=== PATIENT | male | born 1965 | race Caucasian/White ===

== ENCOUNTER 2023-12-18 16:05 | Emergency (ER) | payer BC, SELFPAY ==
[2023-12-18 16:08] VITALS: BP 161/94
[2023-12-18 18:11] LABS: Urine Albumin Negative (Neg - Trace); Urine Bilirubin Negative (Negative); Urine Character Clear (Clear); Urine Color Yellow; Urine Glucose Negative (Negative); Urine Ketone Negative (Negative); Urine Leukocyte Negative (Negative); Urine Nitrite Negative (Negative); Urine Occult Blood Negative (Negative); Urine Specific Gravity 1.015 (<1.030); Urine Urobilinogen Negative (Neg - 1+)
--- NOTE | 2023-12-18 18:14 | ED.GENMED ---
History of Present Illness
General
Chief Complaint: Male Genito-Urinary Symptoms
Source: patient
Exam Limitations: none
Time Seen by Provider: 12/18/23 17:04
Nursing documentation reviewed up to this point in time: agreed with
Travel History
Have you had any contact with someone who has COVID-19?: No
Do you have any symptoms of coronavirus? Fever > 100 degrees, chills, cough, shortness of breath, sore throat, loss of taste or smell, muscle aches, or headache?: No
History of Present Illness
History of Present Illness:
58-year-old male with a past medical history of irritable bowel syndrome who presents to the emergency room for evaluation of testicular pain. Patient reports symptoms have been ongoing for the past 3 weeks but worse today. He reports pain in the
left testicle�describes a constant sensitivity/aching pain that will occasionally become very sharp and intense. There is no clear trigger for the more intense pains. He denies any associated swelling or redness. He denies any associated urinary
symptoms such as dysuria, hematuria, change in urinary frequency. He denies any significant abdominal or back pain, flank pain. He has not had any fevers or chills. He has not had any trauma to the area. He denies having had similar symptoms in
the past.
Past History
Past History
ED Past Medical History: None
ED Past Surgical History: Orthopedic (right knee had multiple surgeries )
Social History
Tobacco: Non-smoker
Alcohol: Occasional
Personal:
Living: with family
Employment: Employed
Family History
Family History: Hypertension and CAD
Review of Systems
Review of Systems
All Other Systems: ROS reviewed and negative except as documented in HPI and ROS
Constitutional: Denies fever or chills
Respiratory: Denies trouble breathing
Cardiac: Denies chest pain
ABD/GI: Denies abdominal pain, nausea or vomiting
: Reports other (Testicular pain); Denies dysuria, frequency or flank pain
Neurological: Denies headache
Phy Exam
Physical Exam
Physical Exam:
General: Awake, alert, oriented x3; no acute distress
Head: Normocephalic, atraumatic
Eyes: Conjunctiva normal
Throat: Airway intact, handling secretions
Neck: Trachea midline
Lungs: Breathing comfortably and not in distress
Heart: Regular rate
Abd: Soft, non distended, nontender with no abdominal mass
: Normal testicular lie, no scrotal swelling, mild left testicular tenderness but no masses appreciated, no hernia
Neuro: No gross deficits
Skin: no rash
Extremities: Warm and well-perfused
Scores
Heart Failure Risk
Heart Failure Risk Score: Not Applicable
Heart Score for Chest Pain Patients
STEMI patient?: Not applicable
Withdrawal Assessment of Alcohol
Withdrawal Assessment Completed?: Not applicable
Course
Orders/Labs/Results
Orders:
Orders
12/18/23 16:11
US Scrotum Urgent
Comment:
Reason For Exam: L testicle pain
12/18/23 17:48
Urinalysis Reflex To Culture Urgent
Date Specimen was Collected: 12/18/23
Time Specimen was Collected: 17:45
12/18/23 18:58
Chlamydia/GC by PCR Urgent
ABHI Source: Urine
Specimen Description:
Source:: URINE
Vital Signs
Initial and Last Documented VS:
Initial Vital Signs
Temp Pulse Resp BP Pulse Ox
36.7 C 72 20 161/94 95
12/18/23 16:08 12/18/23 16:08 12/18/23 16:08 12/18/23 16:08 12/18/23 16:08
Last Documented Vital Signs
Temp Pulse Resp BP Pulse Ox
36.7 C 72 20 161/94 95
12/18/23 16:08 12/18/23 16:08 12/18/23 16:08 12/18/23 16:08 12/18/23 16:08
MDM/Problems Addressed
Differential Diagnosis Includes:
Testicular torsion, epididymitis, orchitis, inguinal hernia, varicocele, kidney stone
MDM/Problems Addressed:
58-year-old male presents for evaluation of 3 weeks of left testicular pain that seems to be worsening today. No trauma. Hypertensive otherwise normal vitals. Exam as above. Plan to send for scrotal ultrasound to rule out testicular torsion and
evaluate for epididymitis/orchitis. Will send a urinalysis. Offered pain control patient declined. Will monitor and reassess after the above.
Call placed to ultrasound to obtain scrotal study�they are on the way to the hospital, continue to monitor.
Scrotal ultrasound negative for testicular torsion or mass�normal arterial and venous blood flow demonstrated in the left testicle. Low suspicion for intermittent torsion as he is having pain at time of exam which goes against this diagnosis. His
urinalysis is negative although he does not have any lower urinary tract symptoms and so this does not rule out epididymoorchitis and in fact I suspect this is the most likely diagnosis based on time course of symptoms and exam. Patient is
in a monogamous relationship. Will plan to treat with Bactrim. Will refer to urology for follow-up this week. Patient feels comfortable with this plan. I spoke to him about strict return precautions including worsening of his pain, swelling in
his scrotum or any other symptoms that are concerning to him.
Acute Exacerbation and/or Progression of Chronic Illness:
Acutely hypertensive
Acute Exacerbation and/or Progression of Chronic Illness: HTN
*Radiology
Radiology exam reviewed: radiology read reviewed
*Pulse Oximetry
Patient hypoxic: no
*Critical Care Note
Total Time (30-74mins, 75-104mins- exclusive of procedures): Not Applicable
Data Reviewed
Source: patient
ED Attending Note
-
Portions of this chart may have been created with voice recognition software.� Occasional wrong word or��sound alike� substitutions may have occurred due to the inherent limitations of voice recognition software.
Discharge Plan
Departure
Patient Disposition: Home (Routine Discharge)
Date of Disposition: 12/18/23
Time of Disposition: 19:01
Patient with high blood pressure during this ER visit?: Yes
Discharge Problem:
Epididymo-orchitis
Instructions: Epididymitis and Orchitis
Prescriptions:
New
sulfamethoxazole-trimethoprim [Bactrim DS] 800-160 mg tablet
1 tab PO BID 10 Days Qty: 20 0RF
No Action
ibuprofen [Advil Liqui-Gel] 200 MG capsule
200 mg PO QID
albuterol sulfate [Albuterol Sulfate HFA] 18 GM HFA aerosol inhaler
18 gm inhalation Q4HPRN PRN (Reason: cough, wheezing) Qty: 1 0RF
prednisone 10 MG tablet
10 mg PO .TAPER Qty: 30 0RF
Rx Instructions:
Take 40mg daily x3days, 30mg daily x3days,
20mg daily x3days, 10mg daily x3days.
Referrals:
Sofya Rankin PA-C [Family Provider] -
Waqas Horta Jr., MD [Active] - Call in 1-3 days for appt
Activity Restrictions/Additional Instructions:
Thank you for visiting the Emergency Department at [facility].
1. Please schedule a follow up appointment as directed. Call first thing tomorrow morning to make an appointment.
2. If indicated, please take your medications as instructed and indicated on discharge paperwork.
3. If any of your symptoms do not improve, or persist, or become more severe within 6-12 hours, please return to the emergency department for further care.
4. Please return to the emergency department if you develop a headache, neck pain/stiffness, fever greater than 100.4F, chest pain, shortness of breath, persistent nausea, vomiting, slurred speech, difficulty walking, numbness/tingling, weakness,
signs of infection or any other symptoms that are worrisome to you.
Please call [phone] if you have any questions.
Interventions
Interventions:
*Risk Screen - Suicide Last Done: 12/18/23 16:08
*General Assessment Last Done: 12/18/23 16:08
*Neglect/Abuse Screening Last Done: 12/18/23 16:08
ED- Fall Risk Assessment Last Done: 12/18/23 17:30
ED-Male Genitourinary Assessment Last Done: 12/18/23 17:30
Discharge Date and Time
Print Language: VIETNAMESE
[2023-12-18] MEDS: BACTRIM DS 800 MG/160 MG 1 TABLET PO (19:08)
== END 2023-12-18 19:29 | disposition home or self-care (01) ==
LOC: EMR 16:05
PROVIDERS: EMERGENCY PHYSICIAN Emergency Medicine; FAMILY PHYSICIAN Physician Assistant Medical
DX: N45.3 Epididymo-orchitis (principal); I10 Essential (primary) hypertension
CPT/HCPCS: 99285; 76870; 81003; 87491; 87591; 93976

== ENCOUNTER → 2023-12-30 08:26 | Outpatient (REF) | payer BC, SELFPAY | LOC: HWRAD 08:26 | PROVIDERS: ATTENDING PHYSICIAN Specialist; FAMILY PHYSICIAN Physician Assistant Medical | DX: R10.33 Periumbilical pain (principal) | CPT/HCPCS: 74177; Q9967 ==

== ENCOUNTER 2024-02-27 06:11 | Day surgery (SDC) | payer BC, SELFPAY ==
[2024-02-14 13:57] VITALS: BMI 31.8
[2024-02-27] VITALS (12 sets, daily range): BP systolic 109–146; BP diastolic 69–90; BMI 29.9
[2024-02-27] MEDS: TYLENOL 1000 MG PO (06:45)
--- NOTE | 2024-02-27 09:20 | W.IMMPOSTOP ---
Surgical Immed Post Op Note
-
Primary Surgeon: Mei
Assisting: Adam LUKE
Pre-op Diagnosis: Umbilical hernia
Post-op Diagnosis: Incarcerated umbilical hernia and epigasttic hernia
Procedure Performed: Robot assisted laparoscopic repair of incarcerated umbilical and epigastric hernias (rTAPP)
Anesthesia Type: GETA + TAP block
Specimen / Cultures: None
Estimated Blood Loss: 2cc
Complications: None immediate
Operative Findings: 1.5cm x 1.5cm incarcerated umbilical defect with fatty contents, 5cm superior to this a 1cm x 5mm defect with fatty contents. Total hernia size 7cm); Bard soft mesh 15cm x 15cm
--- NOTE | 2024-02-27 09:22 | OR.RPT ---
Operative Report
Operative Report
Primary Surgeon: Mei
Assisting: Adam LUKE
Pre-op Diagnosis: Umbilical hernia
Post-op Diagnosis: Incarcerated umbilical hernia and epigasttic hernia
Procedure Performed: Robot assisted laparoscopic repair of incarcerated umbilical and epigastric hernias (rTAPP)
Anesthesia Type: GETA + TAP block
Specimen / Cultures: None
Estimated Blood Loss: 2cc
Complications: None immediate
Operative Findings: 1.5cm x 1.5cm incarcerated umbilical defect with fatty contents, 5cm superior to this a 1cm x 5mm defect with fatty contents. Total hernia size 7cm); Bard soft mesh 15cm x 15cm
Date of surgery: 02/27/24
Indications:� This 59M developed a symptomatic umbilical hernia. Robot assisted laparoscopic repair was planned.
Description of procedure:� The patient was taken to the operating room and positioned into supine position. The patient�s abdomen was prepped and draped in standard sterile fashion. A time-out was completed verifying correct patient, procedure,
site, positioning, and implants and special equipment prior to beginning this procedure.� The hernia was partially manually reduced after induction. A stab incision was made in the left upper quadrant, a Veress needle was inserted and proper
position was confirmed by aspiration and saline drop test. Following this, pneumoperitoneum was created with insufflation of carbon dioxide to 12 mmHg. Then a 8mm robotic trocar was inserted at the left anterior axillary line at the level of the
umbilicus. A laparoscope was inserted and the area of initial trocar entry and Veress needle placement were both inspected and no injuries were found. Two 8mm trocars were then placed a hand's breadth above and below the initial trocar under direct
visualization.
Attention was turned to the umbilicus. The peritoneum was incised several cm superior to the defect and a peritoneal flap was developed in transverse and caudad directions using blunt and sharp dissection and judicious electrocautery. The defect was
identified and measured as above. Fatty contents were reduced. An epigastric defect was also identified with measurements as above. The defects were closed with 0 PDS stratafix suture. A 15cm x 15cm bard soft mesh was passed into the abdomen. It was
placed against the underside of the abdominal wall and secured in place with 2-0 vicryl sutures at all four corners and [facility] along each side. The flap was closed over the mesh and secured with 2-0 monocryl stratafix suture. A 14g angiocath was
used to decompress the preperitoneal space. After closure of several small flap defects the flap sealed and suctioned nicely up to the abdominal wall. The mesh did not fold nor curl. A transversus abdominis plane block was then performed under
laparoscopic vision with marcaine/decadron.
After ensuring adequate hemostasis, the trocars were removed and the pneumoperitoneum allowed to escape. The trocar incisions were closed at the skin level using 4-0 monocryl and topical skin adhesive. All counts were correct and the patient
tolerated the procedure well and was taken to the postanesthesia care unit in stable condition.
The assistance of Adam HESS was required due to the complexity of the procedure. During the procedure she assisted with retraction, resection, and closure of the wound.
[2024-02-27] MEDS: DILAUDID 0.5 MG IV (09:34)
[2024-02-27] MEDS: DEMEROL 12.5 MG IV ×2 (09:42→10:03)
[2024-02-27] MEDS: ROXICODONE 5 MG PO (11:03)
== END 2024-02-27 12:00 | disposition home or self-care (01) ==
LOC: SDS 06:11
PROVIDERS: ATTENDING PHYSICIAN Surgery; FAMILY PHYSICIAN Physician Assistant Medical
DX: K42.0 Umbilical hernia with obstruction, without gangrene (principal); K43.6 Other and unspecified ventral hernia with obstruction, without gangrene
CPT/HCPCS: 49592; 36415; 93005; C1781